=== PATIENT | male | born 1975 | race African-American/Black ===

== ENCOUNTER 2019-02-28 16:26 | Emergency (ER) | payer OTHER ==
[~2019-02-28] VITALS: Ht 177.8 cm; Wt 113.4 kg
[2019-02-28 18:10] VITALS: BP 130/79; TEMP 98.5
== END 2019-02-28 18:10 | disposition home or self-care (01) ==
LOC: ED 16:26
DX: G44.209 Tension-type headache, unspecified, not intractable (principal); J32.9 Chronic sinusitis, unspecified; I10 Essential (primary) hypertension
CPT/HCPCS: 93005; 96372; 99283; J1885

== ENCOUNTER 2021-06-26 15:48 | Emergency (ER) | payer OTHER ==
[~2021-06-26] VITALS: Ht 177.8 cm; Wt 113.4 kg
[2021-06-26 15:55] VITALS: TEMP 97.7
[2021-06-26] MEDS ORDERED: ASPIR-LOW81 MG PO (15:59)
[2021-06-26 17:18] VITALS: BP 146/88
== END 2021-06-26 17:20 | disposition home or self-care (01) ==
LOC: ED 15:48
DX: S60.552A Superficial foreign body of left hand, initial encounter (principal); W45.8XXA Other foreign body or object entering through skin, initial encounter; Y92.89 Other specified places as the place of occurrence of the external cause
CPT/HCPCS: 90471; 90715; 99283; J2001

== ENCOUNTER 2022-05-03 17:52 | Observation (INO) | payer OTHER ==
[~2022-05-03] VITALS: Ht 177.8 cm; Wt 136.7 kg
[~2022-05-03 17:52] MED LIST: ASPIR-LOW81 MG PO
[2022-05-03 18:06] VITALS: BP 139/78; TEMP 97
[2022-05-03 18:28] LABS: PLATELET COUNT 153 K/uL (142-355)
[2022-05-03 18:33] LABS: POTASSIUM 3.7 mmol/L (3.6-5.2)
[2022-05-03 19:00] VITALS: BP 122/75
[2022-05-03 19:30] VITALS: BP 114/60
[2022-05-03 20:00] VITALS: BP 129/87
[2022-05-03 21:31] VITALS: BP 147/92; TEMP 98.4; Ht 177.8 cm; Wt 136.7 kg
[2022-05-04] VITALS: BP 133/68; TEMP 97.7
[2022-05-04 04:00] VITALS: BP 117/63; TEMP 97.7
[2022-05-04 05:29] LABS: PLATELET COUNT 75 K/uL (142-355)
[2022-05-04 05:37] LABS: POTASSIUM 3.6 mmol/L (3.6-5.2)
[2022-05-04 08:00] VITALS: BP 120/78; TEMP 97.5
[2022-05-04] MEDS ORDERED: LISI20TA11 PO ×2 (09:02→12:53)
[2022-05-04] MEDS ORDERED: METFTAB PO (09:02)
[2022-05-04 11:39] VITALS: BP 133/77; TEMP 97.8
[2022-05-04] MEDS ORDERED: [UNRECOGNIZED DRUG - OTHER] DT (12:57)
[2022-05-04] MEDS ORDERED: VITAMIN D350000 UNIT PO (13:07)
[2022-05-04] MEDS ORDERED: KETO10TA34 PO (13:10)
== END 2022-05-04 14:40 | disposition home or self-care (01) ==
LOC: ED 17:52 → MED/SURG 20:00
PROVIDERS: ADMIT Emergency Medicine; ATTEND Internal Medicine
DX: J18.8 Other pneumonia, unspecified organism (principal); R07.89 Other chest pain; I10 Essential (primary) hypertension; E11.65 Type 2 diabetes mellitus with hyperglycemia
CPT/HCPCS: 36415; 80053; 83690; 83880; 84484; 85027; 85379; 85610; 85730; 87040; 87502; 87635; 93005; 94664; 96365; 96375; 99220; 99284; G0378; J1956; J2270; J2405; U0003

== ENCOUNTER 2023-02-08 02:09 | Emergency (ER) | payer OTHER ==
[~2023-02-08] VITALS: Ht 177.8 cm; Wt 136.1 kg
[~2023-02-08 02:09] MED LIST changes: +KETO10TA34 PO; +LISI20TA11 PO; +METFTAB PO; +VITAMIN D350000 UNIT PO; +[UNRECOGNIZED DRUG - OTHER] DT
[2023-02-08 02:18] VITALS: BP 181/102; TEMP 98.6
[2023-02-08 02:52] LABS: PLATELET COUNT 148 K/uL (142-355)
[2023-02-08 03:09] LABS: POTASSIUM 3.6 mmol/L (3.6-5.2)
== END 2023-02-08 06:00 | disposition home or self-care (01) ==
LOC: ED 02:09
PROVIDERS: Family Medicine
DX: R05.9 Cough, unspecified (principal); R51.9 Headache, unspecified
CPT/HCPCS: 36415; 80053; 85027; 87502; 87635; 87651; 99283; U0003